=== PATIENT | female | born 1995 | race African-American/Black ===

== ENCOUNTER 2017-06-22 19:32 | Emergency (ER) | payer OTHER ==
[~2017-06-22] VITALS: Ht 170.2 cm; Wt 65.0 kg
[2017-06-22 19:48] VITALS: BP 114/57; PULSE 98; RESP 18; TEMP 98.3; O2SAT 100
--- NOTE | 2017-06-22 21:11 | PD ---
HPI Chief Complaint: Headache Time Seen by Provider: 20:13 Travel History International Travel<30 days: No Contact w/Intl Traveler<30days: No Traveled to known affect area: No History of Present Illness HPI [id number]-year-old black female presents emergency department after feeling that she might pass out earlier this afternoon while at work. 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 She felt dizzy, lightheaded, blurred vision and felt that her vision was turning dark but never passed out. She states that she just did not feel well. She had general malaise. She denied any fever chills. No ear pain or sore throat. No chest pain or shortness of breath. No palpitations. No nausea vomiting. No abdominal pain or diarrhea. No dysuria frequency. She denies any focal weakness or numbness. She denies any problems with heavy periods. PFSH Past Medical History Medical History: Denies Significant Hx Diminished Hearing: No Immunizations Current: Yes Tetanus Vaccination: < 5 Years Influenza Vaccination: No ?: Unknown LMP: 06/02/2017 Past Surgical History Surgical History: No Previous Surgery Social History Alcohol Use: No Tobacco Use: No Substance Use: No Allergies-Medications (Allergen,Severity, Reaction): Coded Allergies: No Known Allergies (Verified Allergy, Mild, 06/22/17) Reported Meds & Prescriptions Reported Meds & Active Scripts Active Review of Systems General / Constitutional: No: Fever Eyes: Positive: Blurred Vision, Visual changes HENT: No: Headaches, Neck Stiffness Cardiovascular: No: Chest Pain or Discomfort Respiratory: No: Shortness of Breath Gastrointestinal: No: Abdominal Pain Genitourinary: No: Dysuria Musculoskeletal: No: Arthralgias, Pain Skin: Positive Other (Feeling sweaty), No Rash Neurologic: Positive: Dizziness, Syncope (Feeling that she might pass out), No : Weakness, Headache, Change in Mentation, Slurred Speech, Paresthesia Psychiatric: No: Depression Endocrine: No: Polydipsia Hematologic/Lymphatic: No: Easy Bruising Physical Exam Narrative GENERAL: Well-developed, well-nourished in no apparent distress. Nontoxic appearing. HEAD: Normocephalic, atraumatic. EYES: Pupils equal round and reactive. Extraocular motions intact. No scleral icterus. No injection or drainage. ENT: Nose clear. Throat without erythema, tonsillar hypertrophy or exudate. Uvula midline. Airway patent. NECK: Trachea midline. Supple, nontender, moves head freely. No central bony tenderness or spasm. CARDIOVASCULAR: Regular rate and rhythm without murmurs, gallops, or rubs. RESPIRATORY: Clear to auscultation. Breath sounds equal bilaterally. No wheezes , rales, or rhonchi. GASTROINTESTINAL: Abdomen soft, non-tender, nondistended. No hepato-splenomegaly , or palpable masses. No guarding. EXTREMITIES: No clubbing, cyanosis, or edema. No joint tenderness. BACK: Nontender without deformity. No flank tenderness. NEUROLOGICAL: Awake, alert and oriented x 3 .Cranial nerves grossly intact. Motor and sensory grossly within normal limits. Normal speech. Normal gait. Normal finger to nose. Data Data Last Documented VS Vital Signs Date Time Temp Pulse Resp B/P (MAP) Pulse Ox O2 Delivery O2 Flow Rate FiO2 06/22/17 19:48 98.3 98 18 114/57 (76) 100 Orders Orders Electrocardiogram (06/22/17 20:21) Complete Blood Count With Diff (06/22/17 20:21) Basic Metabolic Panel (Bmp) (06/22/17 20:21) Ua Includes Microscopic (06/22/17 20:21) Ed Urine Pregnancytest Poc (06/22/17 20:21) MDM Medical Decision Making Medical Screen Exam Complete: Yes Emergency Medical Condition: Yes Medical Record Reviewed: Yes Differential Diagnosis Differential diagnosis: Anemia, UTI, , electrolyte abnormality, vasovagal Narrative Course IV access is obtained. Routine laboratory tests including CBC, chemistry, UA and . Condition: Stable Samuel Ware June 22, 2017 20:36
[2017-06-22 21:17] LABS: AUTOMATED NEUTROPHIL # 5.6 TH/MM3 (1.8-7.7); BASOPHIL % 0.2 % (0.0-2.0); EOSINOPHIL # 0.1 TH/MM3 (0-0.4); EOSINOPHIL % 1.3 % (0.0-4.0); HEMATOCRIT 45.1 % (35.0-46.0); HEMOGLOBIN 15.1 GM/DL (11.6-15.3); LYMPH % 19.9 % (9.0-44.0); LYMPHOCYTE # 1.5 TH/MM3 (1.0-4.8); MEAN CELL VOLUME 92.5 FL (80.0-100.0); MEAN CORPUSCULAR HGB CONC 33.6 % (32.0-36.0); MEAN PLATELET VOLUME 10.6 FL (7.0-11.0); MONO % 2.8 % (0.0-8.0); MONOCYTE # 0.2 TH/MM3 (0-0.9); NEUT % 75.8 % (16.0-70.0); PLATELET COUNT 214 TH/MM3 (150-450); RED BLOOD COUNT 4.88 MIL/MM3 (4.00-5.30); RED CELL DISTRIBUTION WIDTH 15.1 % (11.6-17.2); WHITE BLOOD COUNT 7.4 TH/MM3 (4.0-11.0)
[2017-06-22] MEDS ORDERED: ACETAMINOPHEN 325 MG TAB PO ONE (21:45)
--- NOTE | 2017-06-22 21:47 | PD ---
Physical Exam Date Seen by Provider: June 22, 2017 Time Seen by Provider: 21:45 Narrative 22-year-old female came to the emergency room with history of headache that started today. Patient says the pain has been intermittent and comes and goes. This is associated with some dizziness and diaphoresis. Patient says currently the headache is better and it 6 out of 10. It is on the left temporal area. Vital signs are stable. Patient did not take anything for her headache before coming to the emergency room. She says she gets headache but this 1 was different. She has been seen by my PA and I am supervising him. When I went to see the patient in the room she had her headphones on and was listening to music from the cell phone. She did not appear to be in any distress. Bedside was negative. CBC is within normal limits. The chemistry is a recollect. I have ordered some Tylenol. Patient will be discharged home once chemistries back and within normal limits. I have recommended that in future when she gets a headache she should try taking at least Tylenol and see if it works before coming to the emergency room. Patient told me that she would like to have a work note since she had to leave work early today. Data Data Last Documented VS Vital Signs Date Time Temp Pulse Resp B/P (MAP) Pulse Ox O2 Delivery O2 Flow Rate FiO2 06/22/17 19:48 98.3 98 18 114/57 (76) 100 Orders Orders Electrocardiogram (06/22/17 20:21) Complete Blood Count With Diff (06/22/17 20:21) Basic Metabolic Panel (Bmp) (06/22/17 20:21) Ua Includes Microscopic (06/22/17 20:21) Ed Urine Pregnancytest Poc (06/22/17 20:21) Acetaminophen (Tylenol) (06/22/17 21:45) Labs Laboratory Tests Test 06/22/17 20:45 White Blood Count 7.4 TH/MM3 Red Blood Count 4.88 MIL/MM3 Hemoglobin 15.1 GM/DL Hematocrit 45.1 % Mean Corpuscular Volume 92.5 FL Mean Corpuscular Hemoglobin 31.0 PG Mean Corpuscular Hemoglobin Concent 33.6 % Red Cell Distribution Width 15.1 % Platelet Count 214 TH/MM3 Mean Platelet Volume 10.6 FL Neutrophils (%) (Auto) 75.8 % Lymphocytes (%) (Auto) 19.9 % Monocytes (%) (Auto) 2.8 % Eosinophils (%) (Auto) 1.3 % Basophils (%) (Auto) 0.2 % Neutrophils # (Auto) 5.6 TH/MM3 Lymphocytes # (Auto) 1.5 TH/MM3 Monocytes # (Auto) 0.2 TH/MM3 Eosinophils # (Auto) 0.1 TH/MM3 Basophils # (Auto) 0.0 TH/MM3 CBC Comment DIFF FINAL Differential Comment MDM Supervised Visit with MIRIAM: Yes Condition: Stable Jeremiah Jc MD June 22, 2017 21:47
[2017-06-22 22:42] LABS: BACTERIA, URINE RARE /hpf; BILIRUBIN, URINE NEG (NEG); BLOOD, URINE NEG (NEG); GLUCOSE,URINE NEG (NEG); HYALINE CAST, URINE 2 /lpf (RARE); KETONE, URINE NEG (NEG); MUCUS URINE MOD /lpf (OCC); NITRITE,URINE NEG (NEG); PH, URINE 6.5 (5.0-8.5); SQUAMOUS EPITHELIAL CELL URINE 5 /hpf (0-5); URINE COLOR YELLOW (YELLW/STRAW); URINE LEUKOCYTE ESTERASE LARGE (NEG)
[2017-06-22 22:52] LABS: BICARBONATE 27.2 MEQ/L (21.0-32.0); CALCIUM 8.6 MG/DL (8.5-10.1); CREATININE 0.74 MG/DL (0.50-1.00)
[2017-06-22] MEDS ORDERED: CEPH-460 PO (22:56)
[2017-06-22] MEDS ORDERED: CEPHALEXIN MONOHYDRATE 500 MG CAP PO ONE (23:00)
--- NOTE | 2017-06-23 17:22 | EKG ---
Date Performed: 06/22/2017 Time Performed: 20:46:38 PTAGE: 22 years EKG: Sinus rhythm WITH SHORT FL INTERVAL BORDERLINE ECG NO PREVIOUS TRACING DOCTOR: Xiang Rhodes Interpretating Date/Time 06/23/2017 17:20:12
== END 2017-06-23 00:34 | disposition home or self-care (01) ==
LOC: NEPD 19:32
DX: N39.0 Urinary tract infection, site not specified (principal); R94.31 Abnormal electrocardiogram [ECG] [EKG]; H53.8 Other visual disturbances
CPT/HCPCS: 80048; 81001; 84703; 85025; 93005; 99284